=== PATIENT | female | born 1965 | race Caucasian/White ===

== ENCOUNTER 2021-04-06 13:44 | Emergency (ER) | payer SELFPAY ==
[2021-04-06 13:57] VITALS: BP 133/85; PULSE 74; RESP 18; TEMP 37.1; O2SAT 97; BMI 26.8
--- NOTE | 2021-04-06 14:02 | CTR_ITS ---
PROCEDURE INFORMATION: Exam: CT Right Lower Extremity With Contrast, Hip Exam date and time: 04/06/2021 3:19 PM Age: 55 years old Clinical indication: Pain; Hip; Right; Additional info: Right hip swelling, warmth, pain TECHNIQUE: Imaging protocol: CT of the Right lower extremity with intravenous contrast was performed. Exam focused on the hip. Radiation optimization: All CT scans at this facility use at least one of these dose optimization techniques: automated exposure control; mA and/or kV adjustment per patient size (includes targeted exams where dose is matched to clinical indication); or iterative reconstruction. Contrast material: OMNI 300; Contrast volume: 95 ml; Contrast route: INTRAVENOUS (IV); COMPARISON: No relevant prior studies available. RADIATION DOSE METRICS: Total DLP (mGy-cm): 980.79 FINDINGS: Bones/joints: No fracture or other acute osseous abnormality. Right hip joint is preserved. No significant joint narrowing. No dislocation. No evidence of joint effusion. Soft tissues: Focal soft tissue density with central calcification noted at the lateral margin of the gluteal muscles, adjacent to the greater trochanter of the right femur. This measures 5 x 3 x 5 cm. This may represent a chronic, partially calcified hematoma versus other soft tissue mass. Mild soft tissue edema surrounding the partially calcified mass. This may represent inflammation or infection. No drainable fluid collection. Calcifications seen in the distal gluteal tendon, consistent with mild enthesopathy. CT/CT hip RT w con [id number] IMPRESSION: 1. Partially calcified 5 x 3 x 5 cm soft tissue mass adjacent to the greater trochanter of the right femur. Consider partially calcified old hematoma versus other mass. 2. Mild soft tissue edema surrounding the partially calcified mass. This may represent inflammation or infection. No drainable fluid collection. 3. Calcifications seen in the distal gluteal tendon, consistent with mild enthesopathy. Radiation Dose CTDIVOL = (mGy): DLP = 980.79 (mGy-cm)
--- NOTE | 2021-04-06 14:35 | ED_ITS ---
HPI - Extremity Problem General: Chief complaint: Extremity Problem,Nontraumatic Stated complaint: SWELLING IN LEG Time Seen by Provider: 04/06/21 13:51 Source: patient and family () Mode of arrival: wheelchair Limitations: no limitations History of Present Illness: HPI Narrative: Patient is a 55-year-old female with no significant past medical history who presents to the emergency department with right hip pain and swelling that started yesterday. Symptoms started yesterday when the patient was out and got worse overnight. Patient was unable to sleep due to the pain. This morning the patient has been unable to ambulate and put weight on the right hip. She is therefore here to be evaluated for this. MD Complaint: extremity pain Onset (ago): day(s) (1) Pain Consistency: constant Location: lower extremity Quality: sharp Radiation: distal Relieving factors: nothing Exacerbating factors: range of motion and weight bearing Associated symptoms: Deny arthralgias, chest pain, fever(s), myalgias, rash or short of breath Review of Systems General: Reports: 10 or more systems reviewed and unremarkable except in HPI and below Const: Denies: fever(s) Card: Denies: chest pain Skin/Breast: Denies: rash Physical Exam Const: COMMON NORMALS: average body habitus, patient oriented x3, no limitations, healthy appearing, alert and well nourished GENERAL APPEARANCE: in distress (painful distress) HENMT: COMMON NORMALS: normocephalic, atraumatic and moist oral mucous membranes HEAD & SCALP: normocephalic and atraumatic Neck/C-Spine: COMMON NORMALS: no meningeal signs and no JVD Resp: COMMON NORMALS: normal respiratory effort, No retractions, No use of accessory muscles, clear to auscultation bilaterally and percussion normal AUSCULTATION: clear to auscultation bilaterally PERCUSSION: percussion normal Cardio: COMMON NORMALS: no JVD, regular rate, regular rhythm, S1 normal heart sound present, S2 normal heart sound present, No gallops present (Cardio), No clicks present (Cardio), No murmurs present (Cardio), No rub (Cardio) and Peripheral pulses 2+ throughout RATE: regular rate RHYTHM: regular rhythm HEART SOUNDS: S1 normal heart sound present and S2 normal heart sound present PERIPHERAL PULSES: Peripheral pulses 2+ throughout GI: COMMON NORMALS: Normal to inspection, nondistended, normoactive bowel sounds present, Soft to palpation, non-tender, No hepatosplenomegaly present, no masses and no bruits PALPATION: Yes Soft to palpation and Yes No hepatosplenomegaly present Extremity: COMMON NORMALS: normal to inspection, full ROM, capillary refill normal, no calf tenderness and no pedal edema RIGHT LOWER EXTREMITY: Yes hip joint Right hip: Yes inspection (Right hip swelling), Yes palpation (Swelling and induration of the right hip, marked tenderness, no erythema bu), Yes ROM (Reduced due to pain) and Yes neurovascular exam (Intact) Neuro: COMMON NORMALS: patient oriented x3 SENSORIUM/ORIENTATION: Yes alert MENINGEAL SIGNS: Yes no meningeal signs Skin: COMMON NORMALS: no rashes or lesions noted, no wounds, turgor normal, no jaundice, no petechiae and no mottling GENERAL SKIN EXAM: no rashes or lesions noted and turgor normal Course Reevaluation(s): Reevaluation #1: Discussed her lab and imaging findings with her. Lab unremarkable, however CT scan of her right hip shows a mass adjacent to the femur. Advised that she be referred to orthopedic surgery for evaluation of this mass, possible biopsy and management. In the interim we will discharge her home with pain medication as she obtain significant relief with morphine here in the emergency department. The patient and her voiced understanding and they are in agreement with the plan. Time: 17:03 Vital Signs: Vital signs: Vital Signs Temperature 98.7 F 04/06/21 13:57 Pulse Rate 89 04/06/21 17:26 Respiratory Rate 17 04/06/21 17:26 Blood Pressure 147/86 04/06/21 17:26 Pulse Oximetry 96 04/06/21 17:26 MDM - Extremity (Nontraumatic) MDM Narrative: Medical decision making narrative: 55-year-old female patient who presented with a 1 day history of her right hip swelling and pain. Evaluation in this emergency department including a CT scan of the hip joint showed a mass at the right hip joint. She is referred to orthopedic surgery for further evaluation and possible biopsy, and he is discharged home with a prescription for pain medication. Laboratory findings were unremarkable. Medical Records: Attestation: I reviewed the patient's medical records. Lab Data: Attestation: I reviewed the patient's lab results. Labs: Lab Results 04/06/21 04/06/21 04/06/21 Range/Units 14:42 14:42 14:42 WBC 9.8 (4.0-10.0) 10^3/ uL RBC 4.48 (4.1-5.3) 10^6/u L Hgb 14.2 (11.5-15.3) g/dL Hct 44.2 (37.0-47.0) % MCV 98.7 (81-99) fL MCH 31.7 (28.0-34.0) pg MCHC 32.1 (30.0-36.0) g/dL RDW 12.4 (12.1-15.1) % Plt Count 221 (130-400) 10^3/c mm MPV 9.4 (7.4-10.4) fL Neut % (Auto) 63.0 % Lymph % (Auto) 27.9 % [place] % (Auto) 7.5 % Eos % (Auto) 1.0 % Baso % (Auto) 0.4 % Neut # (Auto) 6.16 (1.8-7.7) 10^3/u L Lymph # (Auto) 2.7 (0.8-4.8) 10^3/u L [place] # (Auto) 0.7 (0.2-0.9) 10^3/u L Eos # (Auto) 0.1 (0.0-0.8) 10^3/u L Baso # (Auto) 0.0 (0.0-0.1) 10^3/u L Nucleated RBC % (a uto) 0 % Nucleated RBCs # 0.0 /100WBC ESR 22 H (0-15) mm/hr Sodium 141 (136-145) mmol/L Potassium 4.2 (3.5-5.1) mmol/L Chloride 105 (98-107) mmol/L Carbon Dioxide 27 (22-29) mmol/L Anion Gap 13.2 (5-19) BUN 7 (6-20) mg/dL Creatinine 0.5 (0.5-0.9) mg/dL GFR Calculation 127.2 (90-130) mL/min Glucose 88 (65-115) mg/dL Calculated Osmolal ity 289 (285-295) mOsm/k g Calcium 9.0 (8.5-10.5) mg/dL Total Bilirubin 0.5 (0.15-1.2) mg/dL AST 13 (0-32) U/L ALT 11 (0-33) U/L Alkaline Phosphata se 62 (35-105) IU/L Creatine Kinase 102 (26-192) U/L C-Reactive Protein 10.5 H (0.0-4.9) mg/L Total Protein 7.0 (6.6-8.7) g/dL Albumin 4.5 (3.5-5.2) g/dL Globulin 2.5 (1.3-4.6) g/dL Imaging Data^: Other CT: Attestation: I personally reviewed and interpreted this imaging study as follows: Radiologist's impression: [address], [place] [address]AT Scan ReportSigned Patient: Julito Martines #: [id number]: 1965Acct#:[id number]/Sex: 55 / FADM Date: 04/06/21Loc: ER Room/Bed:Attending Dr: Ordering Provider/Ordering MD: Catherine Serna MD, [facility] [place] Date of Service: 04/06/21 Procedure(s): CT hip RT w con [id number] Accession Number(s): [id number] Report Number: [id number] PROCEDURE INFORMATION: Exam: CT Right Lower Extremity With Contrast, Hip Exam date and time: 04/06/2021 3:19 PM Age: 55 years old Clinical indication: Pain; Hip; Right; Additional info: Right hip swelling, warmth, pain TECHNIQUE: Imaging protocol: CT of the Right lower extremity with intravenous contrast was performed. Exam focused on the hip. Radiation optimization: All CT scans at this facility use at least one of these dose optimization techniques: automated exposure control; mA and/or kV adjustment per patient size (includes targeted exams where dose is matched to clinical indication); or iterative reconstruction. Contrast material: OMNI 300; Contrast volume: 95 ml; Contrast route: INTRAVENOUS (IV); COMPARISON: No relevant prior studies available. RADIATION DOSE METRICS: Total DLP (mGy-cm): 980.79 FINDINGS: Bones/joints: No fracture or other acute osseous abnormality. Right hip joint is preserved. No significant joint narrowing. No dislocation. No evidence of joint effusion. Soft tissues: Focal soft tissue density with central calcification noted at the lateral margin of the gluteal muscles, adjacent to the greater trochanter of the right femur. This measures 5 x 3 x 5 cm. This may represent a chronic, partially calcified hematoma versus other soft tissue mass. Mild soft tissue edema surrounding the partially calcified mass. This may represent inflammation or infection. No drainable fluid collection. Calcifications seen in the distal gluteal tendon, consistent with mild enthesopathy. CT/CT hip RT w con [id number] IMPRESSION: 1. Partially calcified 5 x 3 x 5 cm soft tissue mass adjacent to the greater trochanter of the right femur. Consider partially calcified old hematoma versus other mass. 2. Mild soft tissue edema surrounding the partially calcified mass. This may represent inflammation or infection. No drainable fluid collection. 3. Calcifications seen in the distal gluteal tendon, consistent with mild enthesopathy. Radiation Dose CTDIVOL = (mGy): DLP = 980.79 (mGy-cm) Dictated By:Melquiades Lewis MDSigned By:Melquiades Lewis MDSigned Date/Time:04/06/21D/ 48 Discharge Plan Discharge Patient Disposition: Home Clinical Impression: Hip mass Qualifiers: Laterality: right Qualified Code(s): R22.41 - Localized swelling, mass and lump, right lower limb Condition: Stable Prescriptions: New hydrocodone-acetaminophen 5-325 mg tablet 1 tab PO Q8H PRN (Reason: pain) Qty: 21 RF: 0 Continued cefdinir 250 mg/5 mL suspension for reconstitution 300 mg PO Q12H RF: 0 hydroxyzine HCl 25 mg tablet 25 - 50 mg PO DAILY PRN (Reason: stress) RF: 0 Super-D3+ 5,000-200 unit-mg Capsule 1 cap PO DAILY RF: 0 multivitamin 1 mg PO DAILY RF: 0 Discharge Orders: Discharge ED (Routine); Ordered 04/06/21 Ordered By: Catherine Serna Discharge Diet: Usual diet Discharge Activity: Increase activity as tolerated Patient Instructions: Arthralgia (ED), Opioid Safety Activity Restrictions/Additional Instructions: Return for any new or worsening symptoms. Follow-up with your primary care provider within 3 days. You will be contacted by case management to schedule an appointment with orthopedic surgeon for the mass on your right hip. Meanwhile use the pain medicine as needed for pain. Coding Level of Care Code ED Spray Ii Painter for Denzel Fwd Exam Comprehensive
[2021-04-06 14:47] LABS: Basophils % 0.4 %; Eosinophils # 0.1 10^3/uL (0.0-0.8); Hematocrit 44.2 % (37.0-47.0); Hemoglobin 14.2 g/dL (11.5-15.3); Lymphocytes # 2.7 10^3/uL (0.8-4.8); Lymphocytes % 27.9 %; Mean Corpuscular HGB Conc 32.1 g/dL (30.0-36.0); Mean Corpuscular Hemoglobin 31.7 pg (28.0-34.0); Mean Corpuscular Volume 98.7 fL (81-99); Mean Platelet Volume 9.4 fL (7.4-10.4); Monocytes # 0.7 10^3/uL (0.2-0.9); Monocytes % 7.5 %; Neutrophils # 6.16 10^3/uL (1.8-7.7); Nucleated Red Blood Cells % 0 %; Platelet Count 221 10^3/cmm (130-400); Red Blood Count 4.48 10^6/uL (4.1-5.3); Red Cell Distribution Width 12.4 % (12.1-15.1); White Blood Count 9.8 10^3/uL (4.0-10.0)
[2021-04-06 14:54] VITALS: RESP 18; O2SAT 96
[2021-04-06] MEDS: morphine 4 mg/mL SDV 1 mL IVP (14:54)
[2021-04-06] MEDS: ondansetron 2 mg/ML SDV 2 mL 4 MG IVP (14:54)
[2021-04-06 15:13] LABS: Alanine Aminotransferase 11 U/L (0-33); Albumin Level 4.5 g/dL (3.5-5.2); Alkaline Phosphatase 62 IU/L (35-105); Anion Gap 13.2 (5-19); Aspartate Amino Transferase 13 U/L (0-32); Blood Urea Nitrogen 7 mg/dL (6-20); C Reactive Protein 10.5 mg/L (0.0-4.9); Carbon Dioxide 27 mmol/L (22-29); Chloride 105 mmol/L (98-107); Creatine Phosphokinase 102 U/L (26-192); Globulin 2.5 g/dL (1.3-4.6); Glomerular Filtration Rate 127.2 mL/min (90-130); Glucose 88 mg/dL (65-115); Osmolality Calculated 289 mOsm/kg (285-295); Potassium 4.2 mmol/L (3.5-5.1); Sodium 141 mmol/L (136-145); Total Bilirubin 0.5 mg/dL (0.15-1.2)
[2021-04-06 15:45] LABS: Erythrocyte Sedimentation Rate 22 mm/hr (0-15)
[2021-04-06] MEDS: iohexol 300 mg/mL 100 mL Btl IV (15:53)
[2021-04-06 17:26] VITALS: BP 147/86; PULSE 89; RESP 17; O2SAT 96
--- NOTE | 2021-04-07 10:20 | DCPLANNER ---
Addendum entered by Daksha Cervantes 04/15/21 15:31: distillery manager spoke with Eladia at ortho about follow up appointment. distillery manager was told that patient has followed up with her primary care physician for a referral to rheumatology. Original Note: distillery manager had message to schedule a follow up appointment for patient with ortho for a right hip mass. distillery manager called the ortho clinic, spoke with Eladia, gave clinic patients information. distillery manager was told that patients information would be printed and reviewed. Clinic will call patient with appointment information.
== END 2021-04-06 17:37 | disposition home or self-care (01) ==
PROVIDERS: Emergency Provider Family Medicine
DX: R22.41 Localized swelling, mass and lump, right lower limb (principal)
CPT/HCPCS: 73701; 80053; 82550; 85025; 85651; 86140; 96374; 96375; 99283; J2270; J2405; Q9967

== ENCOUNTER → 2021-05-29 15:22 | Outpatient (BNVA) | payer MEDICAID, OTHER, SELFPAY | PROVIDERS: PCP Nurse Practitioner Family; Referring Provider Internal Medicine Critical Care Medicine; Visit Provider Internal Medicine Critical Care Medicine | DX: Z20.822 Contact with and (suspected) exposure to COVID-19 (principal) | CPT/HCPCS: 87635 ==

== ENCOUNTER 2021-06-03 11:51 | Outpatient (CLI) | payer MEDICAID, SELFPAY ==
--- NOTE | 2021-06-03 13:55 | PFTS_ITS ---
Date of Study:06/03/21 Date of Dictation: MECHANICS: Forced vital capacity (FVC) is normal. Forced expiratory volume in one second (FEV1) is reduced. FEV1/FVC is reduced. FLOW VOLUME LOOP: Reduced flow at all lung volumes. LUNG VOLUMES: Not measured DIFFUSING CAPACITY FOR CARBON MONOXIDE: Mild reduced. INTERPRETATION: The pulmonary function tests are consistent with moderate airflow obstruction. There is a significant postbronchodilator response. Gas exchange (DLCO) is mildly reduced. MTDD
--- NOTE | 2021-06-03 14:00 | CT_ITS ---
WS: [id number] LDCT LUNG CANCER SCREENING TECHNIQUE: Noncontrast CT of the chest with coronal and sagittal reformatted images. CLINICAL INFORMATION: F17.200 - Nicotine dependence, unspecified, uncomplicated COMPARISON: None. DLP: 51.81 mGy.cm DIvol: 1.[address] scans at [facility] use at least one of these dose optimization techniques: automat ed exposure control; mA and/or kV adjustment per patient size (includes targeted exams where dose is matched to clinical indication); or iterative reconstruction. FINDINGS: Moderate chronic emphysematous changes. No acute pulmonary infiltrates. Subsegmental atelectasis in t he lung bases. Noncalcified solid nodule in the right middle lobe anteriorly measuring 6.5 mm. A few calcified granulomas. Aortic calcification. Perihilar bronchovascular thickening. Prominent right hil ar lymph node measuring 15 mm. This is difficult to assess without contrast. 2 or 3 tiny noncalcified nodules left lower lobe. Adrenal glands are normal. Small esophageal hiatal hernia. Mild thoracic kyphosis. Hypertrophic hutton es thoracic spine. CT/CT lung screening [id number] IMPRESSION: LUNG-RADS: 4A-Probably Suspicious FOLLOW UP: Chest CT with or without contrast 3 months Indeterminant 6.5 mm solid nodule right middle lobe. Prominent lymph node right hilum. RECOMMEND FURTHER EVALUATION WITH CONTRAST-ENHANCED CHEST CT 3 MONTHS.
== END 2021-06-03 11:52 | disposition home or self-care (01) ==
LOC: RT 11:52
PROVIDERS: PCP Nurse Practitioner Family; Visit Provider Internal Medicine Critical Care Medicine
DX: Z12.2 Encounter for screening for malignant neoplasm of respiratory organs (principal); F17.200 Nicotine dependence, unspecified, uncomplicated; J44.9 Chronic obstructive pulmonary disease, unspecified
CPT/HCPCS: 71271; 94060; 94729; J7611

== ENCOUNTER → 2022-02-08 10:58 | Outpatient (BNVA) | payer MEDICAID, SELFPAY | PROVIDERS: PCP Nurse Practitioner Family; Visit Provider Internal Medicine Critical Care Medicine | DX: J44.9 Chronic obstructive pulmonary disease, unspecified (principal); J30.9 Allergic rhinitis, unspecified; F17.210 Nicotine dependence, cigarettes, uncomplicated; R91.1 Solitary pulmonary nodule | CPT/HCPCS: 99214 ==

== ENCOUNTER → 2022-06-10 10:08 | Outpatient (BNVA) | payer MEDICAID, SELFPAY | PROVIDERS: PCP Nurse Practitioner Family; Visit Provider Internal Medicine Critical Care Medicine | DX: J44.9 Chronic obstructive pulmonary disease, unspecified (principal); R91.1 Solitary pulmonary nodule; R59.0 Localized enlarged lymph nodes; Z85.3 Personal history of malignant neoplasm of breast; Z90.13 Acquired absence of bilateral breasts and nipples; F17.210 Nicotine dependence, cigarettes, uncomplicated | CPT/HCPCS: 99214 ==

== ENCOUNTER 2022-08-03 11:49 | Outpatient (CLI) | payer MEDICAID, SELFPAY ==
--- NOTE | 2022-08-03 12:00 | CT_ITS ---
WS: [id number] CT CHEST WITHOUT INTRAVENOUS CONTRAST HISTORY: follow up lung nodule TECHNIQUE: Contiguous 5 mm axial imaging performed on the thorax. Coronal and sagittal reformats are submitted. All CT scans at [facility] use at least one of these dose optimization techniques: automated exposure control; mA and/or kV adjustment per patient size (includes targeted exams where dose is matched to clinical indication); or iterative reconstruction. CONTRAST: None DLP: 383.89 mGy.cm COMPARISON: 06/03/2021 Lungs and central airway: Hyperinflated lungs from emphysema. No change in the minimally lobulated 6. 6 mm nodule in the RIGHT middle lobe. New wedge-shaped area of groundglass attenuation in the superio r medial RIGHT lower lobe. This probably area of pneumonitis or partial atelectasis. Subsegmental ate lectasis at the lingula. There are a few benign granulomata. Pleura: Normal. No pleural effusion. Heart and pericardium: Normal size heart with no pericardial effusion. Mediastinum and alejandro: Mediastinum is difficult to evaluate without IV contrast. There is mild fullnes s at the RIGHT hilum but cannot confidently describe a lymph node. Vessels: Moderate atherosclerosis aorta. Normal size pulmonary artery. Chest wall and lower neck: Bilateral prior mastectomies. Upper abdomen: Suprarenal abdominal aorta calcification continues. Osseous structures: Increase in thoracic kyphosis. Very mild anterior wedging T12. New since . CT/CT chest wo con [id number] IMPRESSION: 1. No increase in size of the 6.6 mm noncalcified nodule in the RIGHT middle l obe since 06/03/2021. Recommend additional 1 year follow-up CT evaluation. 2. Chronic emphysema. 3. New minimal compression deformity at T12. 4. New very minimal groundglass attenuation versus minimal atelectasis superio r medial RIGHT lower lobe.
== END 2022-08-03 11:50 | disposition home or self-care (01) ==
LOC: RAD 11:51
PROVIDERS: PCP Nurse Practitioner Family; Visit Provider Internal Medicine Critical Care Medicine
DX: J43.9 Emphysema, unspecified (principal); R91.1 Solitary pulmonary nodule
CPT/HCPCS: 71250